=== PATIENT | female | born 1980 | race Hispanic/Latino ===

== ENCOUNTER 2019-03-23 03:00 | Emergency (ER) | payer MEDICAID ==
--- NOTE | 2019-03-23 03:49 | XRay Report ---
PROCEDURE: XR HAND 2V LT TECHNIQUE: 2 views of the left hand HISTORY: left hand pain and swelling COMPARISONS: No priors FINDINGS: Fracture of the mid phalanx of the fourth digit. Disruption of the distal interphalangeal joint. No significant angulation. IMPRESSION: Fracture of the mid phalanx of the left fourth digit.. This document is electronically signed by Hong Bentley MD., Mar 23 2019 03:48:11 AM ET
[2019-03-23 05:37] VITALS: BP 132/81
[2019-03-23] MEDS ORDERED: NORCO 5/325 PO STA (06:09)
== END 2019-03-23 06:45 | disposition left against medical advice (07) ==
LOC: ED 03:00
DX: M79.642 Pain in left hand (principal); W23.0XXA Caught, crushed, jammed, or pinched between moving objects, initial encounter; Y93.89 Activity, other specified; Y92.89 Other specified places as the place of occurrence of the external cause; Y99.8 Other external cause status
CPT/HCPCS: 99283

== ENCOUNTER 2020-04-09 01:06 | Inpatient (IN) | payer MEDICAID ==
[2020-04-09] MEDS ORDERED: NALOXONE 2 MG/2 ML INJ IV ONE (01:10)
[2020-04-09] MEDS ORDERED: SODIUM CHLORIDE 0.9% 1000 ML 1,000 ML ONE (01:12)
[2020-04-09] MEDS ORDERED: SUCCINYLCHOLINE CHLORIDE 200 MG/10 ML INJ MDV ONE ×2 (01:12→05:25)
[2020-04-09] MEDS ORDERED: SODIUM CHLORIDE 0.9% 1000 ML 1,000 ML IV ONE (01:13)
[2020-04-09] MEDS ORDERED: NALOXONE 2 MG/2 ML INJ ONE (01:13)
[2020-04-09] MEDS ORDERED: SUCCINYLCHOLINE CHLORIDE 200 MG/10 ML INJ MDV IV ONE (01:15)
[2020-04-09] MEDS ORDERED: KETAMINE 500 MG/5 ML VIAL MDV IV ONE (01:15)
[2020-04-09] MEDS ORDERED: MINERAL OIL/PETROLATUM, WHITE OPHTH OINT 3.5 GM OU PRN (01:21)
[2020-04-09] MEDS ORDERED: LIP THERAPY VASELINE TP PRN (01:21)
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
[2020-04-09 01:58] LABS: Basophils # (Auto) 0.1 K/mm3 (0.0-0.1); Basophils % (Auto) 0.5 % (0.0-1.8); Eosinophils # (Auto) 0.3 K/mm3 (0.0-0.4); Eosinophils % (Auto) 2.8 % (0.0-4.3); Hematocrit 40.2 % (30.3-42.9); Lymphocytes % (Auto) 18.9 % (13.4-35.0); Mean Corpuscular HGB Conc 32 % (30-34); Mean Corpuscular Volume 87 fl (79-97); Monocytes # (Auto) 0.9 K/mm3 (0.0-0.8); Monocytes % (Auto) 8.5 % (0.0-7.3); Platelet Count 354 K/mm3 (140-440); Red Blood Count 4.64 M/mm3 (3.65-5.03); Red Cell Distribution Width 15.8 % (13.2-15.2)
--- NOTE | 2020-04-09 02:00 | XRay Report ---
CHEST 1 VIEW INDICATION / CLINICAL INFORMATION: ETT placement. Dyspnea with chest pain COMPARISON: None available. FINDINGS: SUPPORT DEVICES: The endotracheal tube terminates about 5 cm above the gagandeep. The esophagogastric tu be appears to terminate near the distal thoracic esophagus.. HEART / MEDIASTINUM: No significant abnormality. LUNGS / PLEURA: No significant pulmonary or pleural abnormality. No pneumothorax. ADDITIONAL FINDINGS: No significant additional findings. IMPRESSION: 1. No acute findings. Signer Name: Tono Duong MD Signed: 04/09/2020 1:55 AM Workstation Name: [email or web address]
[2020-04-09 02:10] LABS: INR 0.95 (0.87-1.13)
[2020-04-09 02:13] LABS: ABG Base Excess -7.4 mmol/L (-2.0-3.0); ABG HCO3 18.7 mmol/L (20.0-26.0); ABG Methemoglobin 0.2 % (0.0-1.5); ABG Oxygen Saturation 99.1 % (95.0-99.0); ABG PCO2 39.8 mm Hg; ABG PH 7.29 pH Units (7.350-7.450); ABG PO2 185.9 mm Hg (80.0-90.0)
[2020-04-09 02:17] LABS: Bilirubin,Urine NEG (Negative); Blood,Urine NEG (Negative); Color,Urine Yellow (Yellow); Hyaline Casts,Urine 2 /LPF; Mucus,Urine FEW /HPF; Protein,Urine <15 mg/dL mg/dL (Negative); RBC,Urine < 1.0 /HPF (0.0-6.0); Urobilinogen,Urine < 2.0 mg/dL (<2.0)
[2020-04-09 02:19] LABS: Partial Thromboplastin Time 30.5 Sec. (24.2-36.6)
[2020-04-09 02:21] LABS: Benzodiazepines Screen,Urine PRESUMPTIVE NEGATIVE; Cannabinoid Screen,Urine PRESUMPTIVE NEGATIVE; Cocaine Screen,Urine PRESUMPTIVE NEGATIVE; Methadone Screen,Urine PRESUMPTIVE NEGATIVE; Opiate Screen,Urine PRESUMPTIVE NEGATIVE
[2020-04-09 02:27] LABS: Alanine Aminotransferase 36 units/L (7-56); Albumin 3.9 g/dL (3.9-5); BUN/Creatinine Ratio 25; Blood Urea Nitrogen 15 mg/dL (7-17); Calcium 8.8 mg/dL (8.4-10.2); Hemolysis Index 2
[2020-04-09 02:33] LABS: Amphetamine Screen,Urine PRESUMPTIVE POSITIVE
--- NOTE | 2020-04-09 03:11 | Cat Scan Report ---
CT head without contrast INDICATION : Altered metal status. TECHNIQUE: Axial imaging performed from the skull apex through the skull base without the use of con trast. All CT examinations performed at this facility utilize dose modulation, iterative reconstruct ion or weight-based dosing, when appropriate, to reduce radiation dose to as low as reasonably achiev able. COMPARISON: None FINDINGS: No acute intracranial hemorrhage or parenchymal abnormality. Ventricles are normal in si ze and appear symmetric. Soft tissues including the orbits appear normal. No acute osseous abnorm ality. Sinuses and mastoid air cells are clear. IMPRESSION: No acute abnormality. Signer Name: Tono Duong MD Signed: 04/09/2020 3:07 AM Workstation Name: [email or web address]
[2020-04-09] MEDS ORDERED: ONDANSETRON 4 MG/2 ML INJ IV PRN (03:50)
[2020-04-09] MEDS ORDERED: DEXTROSE 50% IN WATER (25GM) 50 ML SYRINGE IV PRN (03:50)
[2020-04-09] MEDS ORDERED: SODIUM CHLORIDE 0.9% 1000 ML 1,000 ML IV SCH (04:00)
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
[2020-04-09] MEDS ORDERED: KETAMINE 500 MG/5 ML VIAL MDV ONE (05:25)
[2020-04-09] MEDS ORDERED: hydrALAZINE 20 MG/1 ML INJ IV PRN (07:28)
[2020-04-09 09:12] VITALS: BP 166/91
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
--- NOTE | 2020-04-09 10:37 | Event Note ---
Date: 04/09/20 Patient with acute resp failure, intubated,Amphetamine abuse. I have seen and examined her. Poss extubation today.
[2020-04-09] MEDS ORDERED: FAMOTIDINE 20 MG/2 ML INJ IV SCH (11:00)
[2020-04-09] MEDS: INSULIN LISPRO 100 UNIT/ML SUB-Q SCH ×2 (11:53→17:14)
[2020-04-09] MEDS ORDERED: HEPARIN 5,000 UNIT/1 ML VIAL SUB-Q SCH (14:00)
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
== END 2020-04-09 21:00 | disposition left against medical advice (07) | DRG 208 ==
LOC: ED 01:06 → CC1 06:42 → IMCU 17:53
PROVIDERS: ADMIT Internal Medicine Geriatric Medicine; ATTEND Internal Medicine
PROC: 4A033R1 Measurement of Arterial Saturation, Peripheral, Percutaneous Approach (ICD-10-PCS; principal; 2020-04-09)
PROC: 5A1935Z Respiratory Ventilation, Less than 24 Consecutive Hours (ICD-10-PCS; 2020-04-09)
PROC: 0BH17EZ Insertion of Endotracheal Airway into Trachea, Via Natural or Artificial Opening (ICD-10-PCS; 2020-04-09)
DX: J96.00 Acute respiratory failure, unspecified whether with hypoxia or hypercapnia (principal); G93.40 Encephalopathy, unspecified; I10 Essential (primary) hypertension; E11.9 Type 2 diabetes mellitus without complications; F32.9 Major depressive disorder, single episode, unspecified; F15.10 Other stimulant abuse, uncomplicated; Z90.49 Acquired absence of other specified parts of digestive tract; Z98.51 Tubal ligation status; Z88.6 Allergy status to analgesic agent
CPT/HCPCS: 36415; 70450; 71045; 80053; 80307; 80320; 81001; 82140; 82550; 82803; 82962; 84443; 84484; 84703; 85025; 85610; 85730; 87070; 87205; 93005; 94002; 94003; G0378; G0480; J0330; J1644; J2310; J2405; J2704; J7030

== ENCOUNTER 2021-03-01 19:56 | Emergency (ER) | payer MEDICAID ==
[2021-03-01 20:31] VITALS: BP 138/84
--- NOTE | 2021-03-01 21:26 | Event Note ---
ED Screening Note Date of service: 03/01/21 Time: 21:26 ED Screening Note: Patient complains of right lower leg infection x6 weeks Patient states she was bit by dog 6 weeks ago She states she was then seen at a hospital 2 weeks later and prescribed antibiotics, patient states she lost her prescription and never took these antibiotics She states she has been using topical antibiotics and cleaning the wound at home however the pain and redness is worsening She does admit to some chills and body aches Heart rate noted to be 100 This initial assessment/diagnostic orders/clinical plan/treatment(s) is/are subject to change based on patients health status, clinical progression and re-assessment by fellow clinical providers in the ED. Further treatment and workup at subsequent clinical providers discretion. Patient/guardian urged not to elope from the ED as their condition may be serious if not clinically assessed and managed. Initial orders include: Labs
[2021-03-01 22:29] LABS: Basophils # (Auto) 0.1 K/mm3 (0.0-0.1); Basophils % (Auto) 0.7 % (0.0-1.8); Eosinophils # (Auto) 0.1 K/mm3 (0.0-0.4); Eosinophils % (Auto) 1.6 % (0.0-4.3); Hematocrit 41.8 % (30.3-42.9); Lymphocytes # (Auto) 1.8 K/mm3 (1.2-5.4); Lymphocytes % (Auto) 21.1 % (13.4-35.0); Mean Corpuscular HGB Conc 33 % (30-34); Mean Corpuscular Volume 85 fl (79-97); Monocytes # (Auto) 0.7 K/mm3 (0.0-0.8); Platelet Count 304 K/mm3 (140-440); Red Cell Distribution Width 15.2 % (13.2-15.2)
[2021-03-01 22:40] LABS: Blood Urea Nitrogen 14 mg/dL (7-17); Calcium 9.8 mg/dL (8.4-10.2); Hemolysis Index 4
[2021-03-01 22:42] LABS: BUN/Creatinine Ratio 20
--- NOTE | 2021-03-02 00:18 | Emergency Department Report ---
ED Animal Bite HPI - General Chief Complaint: Extremity Problem,Nontraumatic Stated Complaint: DOG BITE RT LEG Time Seen by Provider: 03/01/21 21:25 Source: patient Mode of arrival: Ambulatory Limitations: No Limitations - History of Present Illness Initial Comments: Patient is a 40-year-old white female with a history of hypertension, tlo-hdezkkn-[id number] diabetes and anxiety and depression who presents to the ED with complaint of persistent painful mildly erythematous ulcerated wound on anterior right lower leg from a dog bite 2 months ago. Patient states that she was initially bitten by one of her neighbors dogs and was initially evaluated and treated at [facility] ED. Patient states that she was given prescription for antibiotics but she lost the prescription before filling it. Patient states that she has been taking [id number]-[id number] pain medications and using uqdx-hui-[id number] topical antibiotic ointments with no relief. Patient states that the wound has significantly increased in size due to persistent ulcerations with purulent discharge. Patient denies numbness and tingling or weakness of right leg, dizziness, syncope, fever, chills, cough, nausea and vomiting, chest pain or shortness of breath. MD Complaint: animal bite (right lower leg puncture wound), animal-related injury -: Sudden, month(s) (2) Location: other (right lower leg pain) Right: Leg (right lower leg puncture wound from dog bite) Animal: dog Animal Control Notified: Yes Description: household pet, immunizations UTD, appeared well Mechanism: bite, contact with mucous membr Pain Description: sharp, constant Severity scale (0 -10): 8 Context: unprovoked Associated Symptoms: none, discharge from wound. denies: diaphoresis Treatments Prior to Arrival: wound dressing(s), antibiotic ointment - Related Data Patient Tetanus UTD: Yes Previous Rx's Medication Instructions Recorded Last Taken Type Amoxicillin/Potassium Clav 1 each PO Q12H #20 tablet 03/02/21 Unknown Rx [Augmentin 875-125 Tablet] Ibuprofen [Motrin] 800 mg PO Q8HR PRN #30 tablet 03/02/21 Unknown Rx Mupirocin [Bactroban 2% OINT] 1 applic TP TID #1 tube 03/02/21 Unknown Rx Allergies Allergy/AdvReac Type Severity Reaction Status Date / Time ketorolac [From Toradol] Allergy Hives Verified 03/23/19 03:06 ED Review of Systems ROS: Stated complaint: DOG BITE RT LEG Other details as noted in HPI Constitutional: denies: chills, fever Eyes: denies: eye pain, eye discharge, vision change ENT: denies: ear pain, throat pain Respiratory: denies: cough, shortness of breath, wheezing Cardiovascular: denies: chest pain, palpitations Endocrine: no symptoms reported Gastrointestinal: denies: abdominal pain, nausea, diarrhea Genitourinary: denies: urgency, dysuria, discharge Musculoskeletal: arthralgia (Right lower leg pain due to ulcerated open wound from a dog bite), myalgia. denies: back pain, joint swelling Skin: other (Open ulcerated wound on right lower leg from previous dog bite). denies: rash, lesions Neurological: denies: headache, weakness, paresthesias Psychiatric: denies: anxiety, depression Hematological/Lymphatic: denies: easy bleeding, easy bruising ED Past Medical Hx - Past Medical History Previous Medical History?: Yes Hx Hypertension: Yes Hx Diabetes: Yes Hx Psychiatric Treatment: Yes (depression) Additional medical history: Fibromyalgia - Surgical History Past Surgical History?: Yes Hx Cholecystectomy: Yes Additional Surgical History: tubaligation - Social History Smoking Status: Never Smoker - Medications Home Medications: Home Medications Medication Instructions Recorded Confirmed Last Taken Type Amoxicillin/Potassium Clav 1 each PO Q12H #20 tablet 03/02/21 Unknown Rx [Augmentin 875-125 Tablet] Ibuprofen [Motrin] 800 mg PO Q8HR PRN #30 tablet 03/02/21 Unknown Rx Mupirocin [Bactroban 2% OINT] 1 applic TP TID #1 tube 03/02/21 Unknown Rx ED Physical Exam - General Limitations: No Limitations General appearance: alert, in no apparent distress - Head Head exam: Present: atraumatic, normocephalic, normal inspection - Eye Eye exam: Present: normal appearance, PERRL, EOMI Pupils: Present: normal accommodation - ENT ENT exam: Present: normal exam, normal orophraynx, mucous membranes moist, TM's normal bilaterally, normal external ear exam - Neck Neck exam: Present: normal inspection, full ROM - Respiratory Respiratory exam: Present: normal lung sounds bilaterally. Absent: respiratory distress, wheezes, rales, rhonchi, chest wall tenderness, accessory muscle use, decreased breath sounds, prolonged expiratory - Cardiovascular Cardiovascular Exam: Present: regular rate, normal rhythm, normal heart sounds. Absent: systolic murmur, diastolic murmur, rubs, gallop - GI/Abdominal GI/Abdominal exam: Present: soft, normal bowel sounds. Absent: tenderness, guarding, rebound, hyperactive bowel sounds, hypoactive bowel sounds, organomegaly - Extremities Exam Extremities exam: Present: normal inspection, full ROM, tenderness (Palpable right lower leg tenderness due to open ulcerated wound from a recent dog bite), normal capillary refill. Absent: calf tenderness - Back Exam Back exam: Present: normal inspection, full ROM. Absent: tenderness, CVA tenderness (R), CVA tenderness (L), muscle spasm, paraspinal tenderness, vertebral tenderness - Neurological Exam Neurological exam: Present: alert, oriented X3, CN II-XII intact, normal gait, reflexes normal - Psychiatric Psychiatric exam: Present: normal affect, normal mood - Skin Skin exam: Present: warm, dry, intact, normal color, other (Open ulcerated wound with mild erythema and mild localized tenderness on right lower leg). Absent: rash ED Course Vital Signs 03/01/21 20:28 Temperature 97.6 F Pulse Rate 100 H Respiratory 19 Rate Blood Pressure 138/84 O2 Sat by Pulse 96 Oximetry Critical care attestation.: If time is entered above; I have spent that time in minutes in the direct care of this critically ill patient, excluding procedure time. ED Disposition Clinical Impression: Puncture wound of right lower leg without foreign body Qualifiers: Encounter type: initial encounter Qualified Code(s): S81.831A - Puncture wound without foreign body, right lower leg, initial encounter Dog bite of right lower leg with infection Qualifiers: Encounter type: initial encounter Qualified Code(s): S81.851A - Open bite, right lower leg, initial encounter Disposition: - TO HOME OR SELFCARE Is pt being admited?: No Does the pt Need Aspirin: No Condition: Stable Instructions: Animal Bite, Adult, [id number], Wound Infection, Qfua-[id number] Additional Instructions: Take medication with food, drink plenty of fluids and follow-up with your primary care physician in 7 to 10 days for reevaluation. Return to the ED immediately if symptoms get worse. Prescriptions: Amoxicillin/Potassium Clav [Augmentin 875-125 Tablet] 1 each PO Q12H #20 tablet Mupirocin [Bactroban 2% OINT] 1 applic TP TID #1 tube Ibuprofen [Motrin] 800 mg PO Q8HR PRN #30 tablet PRN Reason: Pain , Severe (7-10) Referrals: [facility] [Provider Group] - 7-10 days Time of Disposition: 00:15 Print Language: PERSIAN
== END 2021-03-02 00:30 | disposition home or self-care (01) ==
LOC: ED 19:56
DX: S81.831A Puncture wound without foreign body, right lower leg, initial encounter (principal); I10 Essential (primary) hypertension; E11.9 Type 2 diabetes mellitus without complications; F32.9 Major depressive disorder, single episode, unspecified; Z90.49 Acquired absence of other specified parts of digestive tract; Z98.51 Tubal ligation status; Z79.1 Long term (current) use of non-steroidal anti-inflammatories (NSAID); Z79.2 Long term (current) use of antibiotics; Z79.899 Other long term (current) drug therapy; Z88.8 Allergy status to other drugs, medicaments and biological substances; W54.0XXA Bitten by dog, initial encounter; Y93.89 Activity, other specified; Y92.89 Other specified places as the place of occurrence of the external cause; Y99.8 Other external cause status
CPT/HCPCS: 36415; 80048; 85025

== ENCOUNTER 2021-07-03 13:11 | Emergency (ER) | payer MEDICAID ==
[2021-07-03 14:40] VITALS: BP 134/84
--- NOTE | 2021-07-03 15:51 | Event Note ---
ED Screening Note ED Screening Note: injected amphetamine to the left antecubital region states she has redness and swelling states she last injected last week no fever no n/v/d pmhx fibromyalgia, bipolar, sciatica, HTN no HI/SI allergy: toradol also uses marijuana LNMP: two months ago states she is wanting drug rehab This initial assessment/diagnostic orders/clinical plan/treatment(s) is/are subject to change based on patients health status, clinical progression and re- assessment by fellow clinical providers in the ED. Further treatment and workup at subsequent clinical providers discretion. Patient/guardian urged not to elope from the ED as their condition may be serious if not clinically assessed and managed. Initial orders include: labs, medical clearance
[2021-07-03 20:35] LABS: Benzodiazepines Screen,Urine Negative; Cannabinoid Screen,Urine Negative; Cocaine Screen,Urine Negative; Methadone Screen,Urine Negative; Opiate Screen,Urine Negative
[2021-07-03 20:55] LABS: Amphetamine Screen,Urine Positive
[2021-07-03 21:01] LABS: Bacteria,Urine 1+ /HPF (Negative); Bilirubin,Urine NEG (Negative); Blood,Urine LG (Negative); Color,Urine Yellow (Yellow); Mucus,Urine FEW /HPF; Protein,Urine <15 mg/dL mg/dL (Negative); Urobilinogen,Urine < 2.0 mg/dL (<2.0)
== END 2021-07-04 04:14 ==
LOC: ED 13:11
DX: Z00.8 Encounter for other general examination (principal); Z53.21 Procedure and treatment not carried out due to patient leaving prior to being seen by health care provider
CPT/HCPCS: 80307; 81001

== ENCOUNTER 2022-06-15 13:15 | Emergency (ER) | payer MEDICAID ==
[2022-06-15 14:23] VITALS: BP 103/71
== END 2022-06-15 19:00 | disposition left against medical advice (07) ==
LOC: ED 13:15
DX: R50.9 Fever, unspecified (principal); Z53.21 Procedure and treatment not carried out due to patient leaving prior to being seen by health care provider